=== PATIENT | male | born 1970 | race Caucasian/White ===

== ENCOUNTER 2023-03-30 12:36 | Outpatient (CLI) | payer OTHER, SELFPAY ==
[2023-03-30 14:43] LABS: Basophils Absolute Auto 0.1 K/mm3 (0.0-0.1); Basophils Percent Auto 1.4 % (0.2-1.2); Eosinophils Absolute Auto 0.1 K/mm3 (0-0.3); Eosinophils Percent Auto 1.4 % (0-4.4); Hemoglobin 15.8 g/dL (14.0-18.0); Immature Granulocyte Absolute 0.01 K/mm3 (0.00-0.031); Immature Granulocyte Percent A 0.2 % (0-0.5); Lymphocytes Absolute Auto 1.29 K/mm3 (0.9-3.2); Lymphocytes Percent Auto 21.8 % (18.3-44.2); Mean Corpuscular HGB Conc 33.6 g/dl (32-36); Mean Corpuscular Hemoglobin 29.3 pg (26-34); Mean Corpuscular Volume 87.2 fl (80-100); Mean Platelet Volume 10.7 fl (7.4-10.4); Monocytes Absolute Auto 0.3 K/mm3 (0.1-0.6); Monocytes Percent Auto 5.1 % (2.6-8.5); Neutrophils Absolute Auto 4.2 K/mm3 (1.3-6.7); Neutrophils Percent Auto 70.1 % (45.5-73.1); Platelet Count Result 219 k/mm3 (150-375); Red Blood Count 5.39 M/mm3 (4.6-6.20); Red Cell Distribution Width 14.1 % (11.5-14.5); White Blood Count 5.9 K/mm3 (4.5-10.0)
[2023-03-30 15:34] LABS: Erythrocyte Sedimentation Rate 7 mm/hr (0-20)
[2023-03-30 17:37] LABS: Cholesterol 198 mg/dL (0-200); HDL Direct 38 mg/dL; Triglycerides 178 mg/dL (<150)
[2023-03-30 17:51] LABS: LDL Cholesterol Direct 116 mg/dL
[2023-03-30 19:48] LABS: Anion Gap 7 mmol/L (8-16); Blood Urea Nitrogen 13 mg/dL (9-20); CRP < 0.5 mg/dL (<1.0); Calcium 8.9 mg/dL (8.4-10.2); Carbon Dioxide 29 mmol/L (22-30); Chloride 103 mmol/L (98-107); Estimated Glomerular Filt Rate > 60; Glucose 90 mg/dL (65-110); Potassium 4.3 mmol/L (3.4-5.0); Sodium 139 mmol/L (137-145)
[2023-04-02 11:55] LABS: Testosterone Total 405 ng/dL (250-1100)
== END 2023-03-30 12:37 | disposition home or self-care (01) ==
LOC: ANHGOSHLAB 12:38
PROVIDERS: PCP Nurse Practitioner Family; Visit Provider Nurse Practitioner Family
DX: M76.892 Other specified enthesopathies of left lower limb, excluding foot (principal); M79.10 Myalgia, unspecified site; E55.9 Vitamin D deficiency, unspecified; E78.5 Hyperlipidemia, unspecified; R53.83 Other fatigue
CPT/HCPCS: 36415; 80048; 80061; 82306; 82607; 84402; 84403; 84443; 85025; 85652; 86038; 86140

== ENCOUNTER 2023-09-08 06:35 | Outpatient (CLI) | payer OTHER, SELFPAY ==
--- NOTE | ~2023-09-08 | MR_ITS ---
MRI of the lumbar spine Clinical History: Pain Technique: Axial T2-weighted images, and sagittal T1-weighted, T2-weighted, and T2 fat-sat images wer e acquired. Findings: There is no fracture or sublocation of the lumbar spine. Vertebral bodies maintain normal h eight and alignment. No bone marrow signal abnormality seen. At L1-L2, to L3, L3-L4, L4-5, dyspnea maintain normal signal and position. No disc bulge or herniatio n at these levels. No spinal canal stenosis or neural foraminal narrowing at these levels. At L5-S1, there is minimal disc bulge with tiny annular fissure. No spinal canal stenosis or right ne ural foraminal narrowing. There is minimal left neural foraminal narrowing. Paravertebral soft tissues are unremarkable. Impression: Minimal degenerative spondylosis at L5-S1, as detailed above. Reviewed, dictated and finalized at [facility]. 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
== END 2023-09-08 06:36 | disposition home or self-care (01) ==
PROVIDERS: PCP Nurse Practitioner Family; Visit Provider Nurse Practitioner Family
DX: M54.30 Sciatica, unspecified side (principal); M76.892 Other specified enthesopathies of left lower limb, excluding foot
CPT/HCPCS: 72148

== ENCOUNTER 2023-09-27 12:07 | Outpatient (CLI) | payer OTHER, SELFPAY ==
--- NOTE | ~2023-09-27 | XR_ITS ---
AP view of the pelvis and AP and lateral views of the bilateral hips Clinical history: Pain Findings: No acute fracture or dislocation is seen. Osseous alignment is anatomic. There is moderate degenerative change of both hip joints. SI joints are intact. Soft tissues are unremarkable. Impression: Moderate degenerative change of both hip joints. Reviewed, dictated and finalized at location . [employer] [facility] Impression: Moderate degenerative change of both hip joints.
== END 2023-09-27 12:08 ==
PROVIDERS: PCP Nurse Practitioner Family; Visit Provider Nurse Practitioner Family
DX: M16.0 Bilateral primary osteoarthritis of hip (principal)
CPT/HCPCS: 73521

== ENCOUNTER 2023-09-27 12:30 | Outpatient (RCR) | payer OTHER, SELFPAY ==
--- NOTE | 2023-09-24 09:59 | OPREHPOC ---
Outpatient Therapy Plan of Care This is a Multidisciplinary Plan of Care that may contain components documented by all disciplines (PT, OT, and ST.) PT Problem 1 PT Problem #1 Knowledge Deficit PT Goal 1 Goal Pt to be IND with issued HEP Target Visit 4 PT Problem 2 PT Problem #2 Pain PT Goal 1 Goal Pt to report hip pain no greater than 5/10 in the last week Target Visit 4 PT Goal 2 Goal Pt to report 75% improvement in overall symptoms. Target Visit 4 PT Problem 3 PT Problem #3 Impaired Range of Motion PT Goal 1 Goal Pt to improve total hip rotation to 45 deg, charu Target Visit 4 PT Goal 2 Goal Pt to demonstrate passive hip flexion to 110 deg Target Visit 4 PT Problem 4 PT Problem #4 Impaired Gait PT Goal 1 Goal Pt to ambulate with an upright trunk position Target Visit 4
--- NOTE | 2023-09-24 09:59 | PTOPEVAL1 ---
Assessment and note entered by Bunny Alfaro, PT, DPT Evaluation Information Assessment Status Evaluation Diagnosis low back pain, sciatic pain Onset several months Subjective Information Pt reports charu hip and leg pain that goes down to his shins R>L. He reports a minor bulging disc in his back. He states by the end of the day his mobility is so limited d/t pain. He reports his upper thighs will swell at times. He states he goes to the chiropractor and this helps. He states he had Covid a couple of weaks ago and did a lot of laying and resting, this has helped quite a bit . He states he is really active at baseline. 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 Reported Pain Level Pain Score 5: Self Report Assessment PT Clinical Summary Carl presents to therapy today for his initial evaluation with a diagnosis of sciatic pain. Today he demonstrates significant ROM limitations as well as strength limitations which is limited by pain. He ambulates with a flexed trunk d/t lack of terminal hip extension. He has a positive hip scour test. Skilled therapy services are indicated for pain management, to improve hip ROM, to improve mobility, and to return to [facility]. Plan of Care Interventions Electrical Stimulation,Gait Training,Hot Pack/Cold Pack,Manual Therapy,Neuro Re-education,Patient/ Caregiver Educati,Therapeutic Activities, Therapeutic Exercise PT Services Indicated Yes Treatment Frequency and 1x/wk for 4 vistis Duration These treatments will address the objective and functional deficits as defined above. The patient will be advanced safely and appropriately in order for the patient to progress towards his/her prior level of function. Additional exercises will be introduced and as well as a comprehensive home exercise program upon discharge, if needed, ?to ensure carryover of functional gains achieved in the clinic. This treatment plan has been reviewed and agreement upon by the patient.
--- NOTE | 2023-10-08 08:32 | PCPTNOTE ---
Patient was a No Show for today's treatment.
--- NOTE | 2023-10-15 08:33 | PCPTNOTE ---
Patient called and left voicemail stating he's in too much pain to come to therapy this date.
--- NOTE | 2023-10-22 08:21 | PCPTNOTE ---
Patient did not show up for scheduled progress report this date.
--- NOTE | 2023-10-22 08:23 | PTOPDC ---
Assessment and note entered by Bunny Alfaro, PT, DPT Evaluation Information Assessment Status Discharge - Pt Not Present Diagnosis low back pain, sciatic pain Onset several months Subjective Information Pt no showed to re-evaluation this date. He has cancelled or no showed 3/4 of his visits. He will be discharged at this time per the attendance policy. If he needs additional therapy he will need a new order. Assessment PT Clinical Summary Ed completed 2 visits of therapy from 09/24/23 to 10/22/23.
== END 2023-10-22 08:43 | disposition home or self-care (01) ==
LOC: ANHGOSHPT 12:30
PROVIDERS: PCP Nurse Practitioner Family; Visit Provider Nurse Practitioner Family
DX: M54.30 Sciatica, unspecified side (principal); M79.10 Myalgia, unspecified site; M76.892 Other specified enthesopathies of left lower limb, excluding foot
CPT/HCPCS: 97110; 97140; 97161; 97530; 99199

== ENCOUNTER 2023-11-12 08:38 | Outpatient (CLI) | payer OTHER, SELFPAY ==
--- NOTE | 2023-11-12 09:11 | ECG_ITS ---
Measurements Intervals [place] Rate: 48 P: 25 RI: 176 QRS: -1 QRSD: 93 T: 6 QT: 417 QTc: 374 Interpretive Statements SINUS BRADYCARDIA OTHERWISE NORMAL ELECTROCARDIOGRAM NO PREVIOUS ECG AVAILABLE FOR COMPARISON Electronically Signed On 11-12-2023 13:50:50 TOOL CRIB CLERK by Bennett Alcantara M.D.
[2023-11-12 09:18] LABS: Hematocrit 43.1 % (42.0-52.0); Hemoglobin 14.1 g/dL (14.0-18.0)
[2023-11-12 09:37] LABS: Albumin Level 3.7 g/dL (3.5-5.1); Estimated Glomerular Filt Rate > 60; Glucose 92 mg/dL (65-110)
[2023-11-12 11:15] LABS: Urine Cotinine NEGATIVE
== END 2023-11-12 08:39 | disposition home or self-care (01) ==
LOC: ANHLAB 08:39
PROVIDERS: PCP Nurse Practitioner Family; Visit Provider Orthopaedic Surgery
DX: Z01.818 Encounter for other preprocedural examination (principal); M16.12 Unilateral primary osteoarthritis, left hip; R00.1 Bradycardia, unspecified
CPT/HCPCS: 80307; 82040; 82565; 82947; 85014; 85018; 93005

== ENCOUNTER 2024-04-22 08:11 | Outpatient (CLI) | payer OTHER, SELFPAY ==
[2024-04-22 09:19] LABS: Basophils Absolute Auto 0.1 K/mm3 (0.0-0.1); Basophils Percent Auto 0.5 % (0.2-1.2); Eosinophils Absolute Auto 0.1 K/mm3 (0-0.3); Eosinophils Percent Auto 1.2 % (0-4.4); Hematocrit 48.8 % (42.0-52.0); Hemoglobin 15.8 g/dL (14.0-18.0); Immature Granulocyte Absolute 0.08 K/mm3 (0.00-0.031); Immature Granulocyte Percent A 0.7 % (0-0.5); Lymphocytes Absolute Auto 2.76 K/mm3 (0.9-3.2); Lymphocytes Percent Auto 25.2 % (18.3-44.2); Mean Corpuscular HGB Conc 32.4 g/dl (32-36); Mean Corpuscular Hemoglobin 29.9 pg (26-34); Mean Corpuscular Volume 92.2 fl (80-100); Mean Platelet Volume 10.6 fl (7.4-10.4); Monocytes Absolute Auto 0.7 K/mm3 (0.1-0.6); Monocytes Percent Auto 6.3 % (2.6-8.5); Neutrophils Absolute Auto 7.2 K/mm3 (1.3-6.7); Neutrophils Percent Auto 66.1 % (45.5-73.1); Platelet Count Result 199 k/mm3 (150-375); Red Blood Count 5.29 M/mm3 (4.6-6.20); Red Cell Distribution Width 13.8 % (11.5-14.5); White Blood Count 10.9 K/mm3 (4.5-10.0)
[2024-04-22 09:23] LABS: Alanine Aminotransferase 28 U/L (6-50); Albumin Level 4.2 g/dL (3.5-5.1); Alkaline Phosphatase 56 U/L (38-126); Anion Gap 10 mmol/L (4-12); Aspartate Amino Transferase 20 U/L (17-59); Bilirubin,Total 2.2 mg/dL (0.2-1.3); Blood Urea Nitrogen 19 mg/dL (9-20); Carbon Dioxide 30 mmol/L (22-30); Chloride 103 mmol/L (98-107); Cholesterol 227 mg/dL (0-200); Estimated Glomerular Filt Rate 58; Glucose 84 mg/dL (65-110); HDL Direct 58 mg/dL; Potassium 3.9 mmol/L (3.4-5.0); Sodium 143 mmol/L (137-145); Triglycerides 212 mg/dL (<150)
[2024-04-22 09:34] LABS: LDL Cholesterol Direct 139 mg/dL
[2024-04-22 09:42] LABS: Vitamin D 25 Hydroxy 30.4 ng/mL
[2024-04-25 09:49] LABS: Testosterone Free 55.4 pg/mL (46.0-224.0)
[2024-04-25 10:14] LABS: Testosterone Total 344 ng/dL (250-1100)
== END 2024-04-22 08:12 | disposition home or self-care (01) ==
LOC: ANHLAB 08:13
PROVIDERS: PCP Nurse Practitioner Family; Visit Provider Nurse Practitioner Family
DX: M16.11 Unilateral primary osteoarthritis, right hip (principal); M16.12 Unilateral primary osteoarthritis, left hip; R53.83 Other fatigue; R79.89 Other specified abnormal findings of blood chemistry; E55.9 Vitamin D deficiency, unspecified
CPT/HCPCS: 36415; 80053; 80061; 82306; 84402; 84403; 84443; 85025